=== PATIENT | female | born 2000 | race Caucasian/White ===

== ENCOUNTER 2025-04-03 05:30 | Inpatient (IN) | payer MEDICAID ==
[~2025-04-03 05:30] MED LIST: Lactated Ringers 1,000 ML IV SCH; Sodium Chloride 0.9% 10 ML Syringe FLUSH PRN
[2025-04-03] MEDS: Sodium Chloride 0.9% 10 ML Syringe FLUSH SCH ×2 (05:43→19:28)
[2025-04-03] MEDS: Lactated Ringers 1,000 ML IV SCH (06:00)
[2025-04-03 06:16] LABS: BASOPHILS ABSOLUTE AUTO 0.0 K/mm3 (0.0-0.2); BASOPHILS PERCENT AUTO 0.1 % (0.0-1.0); EOSINOPHILS ABSOLUTE AUTO 0.0 K/mm3 (0.0-0.4); EOSINOPHILS PERCENT AUTO 0.5 % (0.0-6.0); IMMATURE GRAN ABSOLUTE AUTO 0.04 K/mm3 (0.00-0.05); IMMATURE GRAN PERCENT AUTO 0.5 % (0.0-0.4); LYMPHOCYTES ABSOLUTE AUTO 2.2 K/mm3 (1.0-4.8); LYMPHOCYTES PERCENT AUTO 25.9 % (24.0-44.0); MEAN PLATELET VOLUME 9.2 fl (9.4-12.3); MONOCYTES ABSOLUTE AUTO 0.6 K/mm3 (0.0-0.8); MONOCYTES PERCENT AUTO 7.0 % (0.0-8.0); NEUTROPHILS ABSOLUTE AUTO 5.5 K/mm3 (1.8-7.7); NEUTROPHILS PERCENT AUTO 66.0 % (41.0-71.0); NRBC ABSOLUTE 0.00 (0.00-0.02); NRBC PERCENT 0.0 % (0.0-0.2); PLATELET COUNT,PLT 375 K/mm3 (150-400); RED BLOOD CELL COUNT 4.06 M/mm3 (4.10-5.30); WHITE BLOOD CELL COUNT,WBC 8.38 K/mm3 (3.9-11.3)
[2025-04-03] MEDS ORDERED: Ondansetron 4 MG/2 ML SDV ONE (06:44)
[2025-04-03] MEDS ORDERED: Morphine PF 10 MG/10 ML SDV ONE (06:44)
[2025-04-03] MEDS ORDERED: Phenylephrine 1% 10 MG/ML SDV ONE (06:44)
[2025-04-03] MEDS ORDERED: dexmedeTOMIDine HCl 200 MCG/2 ML SDV ONE (06:44)
[2025-04-03] MEDS ORDERED: Oxytocin/0.9 % Sodium Chloride 30 UNIT/500 ML BAG IV SCH (07:00)
[2025-04-03] MEDS: Citric Acid/Sodium Citrate Solution 30 ML Cup PO ONE ×2 (07:12→19:29)
[2025-04-03] MEDS ORDERED: Sodium Chloride 0.9% 50 ML SDV ONE (07:37)
[2025-04-03] MEDS ORDERED: Lactated Ringers 1,000 ML ONE (07:42)
[2025-04-03] MEDS ORDERED: Propofol 200 MG/20 ML SDV ONE (07:56)
[2025-04-03] MEDS ORDERED: Ropivacaine 0.5% 5 MG/ML 30 ML SDV ONE (08:17)
[2025-04-03] MEDS ORDERED: Ketorolac 30 MG/ML SDV ONE (08:21)
[2025-04-03] MEDS ORDERED: fentaNYL 100 MCG/2 ML SDV IVPUSH PRN (09:03)
[2025-04-03] MEDS ORDERED: diphenhydrAMINE 50 MG/ML SDV IVPUSH PRN (09:03)
[2025-04-03] MEDS ORDERED: Ondansetron 4 MG/2 ML SDV IVPUSH PRN (09:03)
[2025-04-03] MEDS ORDERED: ePHEDrine 50 MG/ML SDV IVPUSH PRN (10:17)
[2025-04-03] MEDS ORDERED: Naloxone 0.4 MG/ML SDV IVPUSH PRN (10:17)
[2025-04-03] MEDS ORDERED: Sodium Chloride 0.9% 10 ML Syringe FLUSH PRN (10:17)
[2025-04-03] MEDS ORDERED: Ondansetron 4 MG/2 ML SDV IV PRN (10:17)
[2025-04-03] MEDS: diphenhydrAMINE 50 MG/ML SDV IVPUSH PRN (11:20)
[2025-04-03] MEDS: Ketorolac 30 MG/ML SDV IVPUSH SCH (14:29)
[2025-04-04 05:23] LABS: MEAN PLATELET VOLUME 9.2 fl (9.4-12.3); NRBC ABSOLUTE 0.00 (0.00-0.02); NRBC PERCENT 0.0 % (0.0-0.2); RED BLOOD CELL COUNT 3.57 M/mm3 (4.10-5.30); WHITE BLOOD CELL COUNT,WBC 8.90 K/mm3 (3.9-11.3)
[2025-04-04 05:29] LABS: PLATELET COUNT,PLT 280 K/mm3 (150-400)
== END 2025-04-05 11:10 | disposition home or self-care (01) | DRG 788 ==
LOC: JD.OB 05:30
PROVIDERS: ADMIT Obstetrics & Gynecology; ATTEND Obstetrics & Gynecology
PROC: 10D00Z1 Extraction of Products of Conception, Low, Open Approach (ICD-10-PCS; principal; 2025-04-03 07:30)
DX: O34.211 Maternal care for low transverse scar from previous cesarean delivery (principal); O99.02 Anemia complicating childbirth; Z3A.39 39 weeks gestation of pregnancy; Z37.0 Single live birth; O99.214 Obesity complicating childbirth; Z79.899 Other long term (current) drug therapy
CPT/HCPCS: 01961; 36415; 59025; 64488; 85025; 85027; 86592; 86850; 86900; 86901; A9270-GY; J0690; J1200; J1885; J2274; J2371; J2405; J2704; J2765; J2795; J7120; J7121